=== PATIENT | male | born 1980 | race Caucasian/White ===

== ENCOUNTER 2024-10-21 11:36 | Emergency (ER) | payer SELFPAY ==
[~2024-10-21] VITALS: Ht 172.7 cm; Wt 68.0 kg
[2024-10-21 11:40] VITALS: TEMP 98.2
[2024-10-21] MEDS: IV NS 0.9% 1,000 ML BAG IV ONE (12:00)
[2024-10-21 12:05] LABS: BASOPHILS # (AUTO) 0.1 K/uL (0.0-0.2); BASOPHILS % (AUTO) 1.5 % (0.0-2.0); EOSINOPHILS # (AUTO) 0.6 K/uL (0.0-0.7); EOSINOPHILS % (AUTO) 10.1 % (0.0-6.0); HEMATOCRIT 47 % (39-51); HEMOGLOBIN 15.9 g/dL (13.5-17.5); LYMPHOCYTES # (AUTO) 0.6 K/uL (0.8-4.8); LYMPHOCYTES % (AUTO) 10.3 % (20.0-44.0); MEAN CORPUSCULAR HEMOGLOBIN 28 PG (26.0-33.0); MEAN CORPUSCULAR HGB CONC 34 g/dl (31.0-36.0); MEAN CORPUSCULAR VOLUME 81 fL (80-96); MONOCYTES # (AUTO) 0.5 K/uL (0.1-1.30); MONOCYTES % (AUTO) 8.6 % (2.0-12.0); NEUTROPHILS # (AUTO) 4.1 K/uL (1.8-8.9); NEUTROPHILS % (AUTO) 69.5 % (43.0-81.0); PLATELET COUNT (AUTO) 187 K/uL (150-450); RED BLOOD CELL COUNT(AUTO) 5.74 MIL/uL (4.5-6.0); WHITE BLOOD COUNT (AUTO) 5.9 K/uL (4.3-11.0)
[2024-10-21] MEDS ORDERED: KETOROLAC TROMETHAMINE 15 MG/ML VIAL ONE (12:05)
[2024-10-21] MEDS ORDERED: MORPHINE SULFATE INJ 4 MG/ML DISP.SYRIN ONE (12:05)
[2024-10-21] MEDS ORDERED: ONDANSETRON HCL/PF 4 MG/2 ML VIAL ONE (12:05)
[2024-10-21] MEDS: ONDANSETRON HCL/PF 4 MG/2 ML VIAL IVP ONE (12:06)
[2024-10-21] MEDS: KETOROLAC TROMETHAMINE 15 MG/ML VIAL IV ONE (12:06)
[2024-10-21] MEDS: MORPHINE SULFATE INJ 2 MG/ML DISP.SYRIN IV ONE (12:10)
[2024-10-21 12:12] LABS: CALCIUM, SERUM 9.2 mg/dL (8.5-10.1); CREATININE 0.8 mg/dL (0.6-1.3); POTASSIUM 4.3 mmol/L (3.5-5.1)
[2024-10-21 12:23] LABS: ALBUMIN 3.6 g/dL (3.4-5.0); BILIRUBIN,DIRECT 0.4 mg/dL (0.0-0.2); BILIRUBIN,TOTAL 1.7 mg/dL (0.2-1.0); TOTAL PROTEIN, SERUM 7.8 g/dL (6.4-8.2)
[2024-10-21] MEDS: HYDROMORPHONE 1 MG/1 ML DISP.SYRIN IV ONE (12:30)
[2024-10-21] MEDS ORDERED: HYDROMORPHONE 1 MG/1 ML DISP.SYRIN ONE (12:31)
[2024-10-21 12:47] LABS: APPEARANCE,URINE CLOUDY (CLEAR); BILIRUBIN,URINE 1+ (NEGATIVE); BLOOD, URINE 3+ Ery/uL (NEGATIVE); COLOR,URINE ORANGE (YELLOW); KETONES,URINE TRACE mg/dL (NEGATIVE); LEUKOCYTE ESTERASE ,URINE 2+ (NEGATIVE); NITRITE, URINE POSITIVE (NEGATIVE); PROTEIN,URINE 2+ mg/dl (NEGATIVE); UGLUCOSE TRACE mg/dL (NEGATIVE)
[2024-10-21] MEDS ORDERED: CEFTRIAXONE 1GM BAG (ER ONLY) 50 ML IV ONE (13:07)
[2024-10-21] MEDS: CEFTRIAXONE 1GM BAG (ER ONLY) 1 GM/50 ML PIGGYBACK IV ONE (13:10)
[2024-10-21 13:12] LABS: ADD URINE CULTURE YES; BACTERIA,URINE 1+ /HPF (None Seen); RBC,URINE TOO NUMEROUS TO COUN /HPF (0-2)
[2024-10-21] MEDS ORDERED: CEFD300C3 PO (13:21)
[2024-10-21 15:37] VITALS: BP 125/75; O2SAT 99
== END 2024-10-21 14:00 | disposition home or self-care (01) ==
LOC: ER 11:40
DX: N10 Acute pyelonephritis (principal); R31.9 Hematuria, unspecified
CPT/HCPCS: 99285; 74176; 96365; 96375; 76705; 96361; 85025; 80048; 83690; 80076; 81001; 36415; J1885; J2270; J2405; J7030; J0696; J1171